=== PATIENT | male | born 1990 | race Caucasian/White ===

== ENCOUNTER → 2018-10-08 11:27 | Outpatient (CLI) | payer SELFPAY ==
--- NOTE | 2018-10-08 11:34 | HTC.HP4 ---
- Problem List (1) Hemophilia B Status: Chronic Subjective Date of Service:: 10/08/18 Chief Complaint: Hemophilia annual follow-up History of Present Illness: Hemophilia annual follow-up Used factor on 2 occasions right calf for traumatic injury and left knee without a clear injury but the knee did swell. Did not see dentist past year Health History: Past Medical History (Last Updated 10/08/17 @ 10:25 by Perla Castellano) Hemophilia (Acute) Past Surgical History (Last Updated 10/08/17 @ 10:25 by Perla Castellano) History of surgery of head (Acute) Family History (Last Updated 10/08/17 @ 10:25 by Perla Castellano) Brother Hemophilia Allergies/Adverse Reactions: Allergy/AdvReac Type Severity Reaction Status Date / Time aspirin AdvReac Severe Other Verified 10/08/18 11:44 Risk Factors Social History Smoking Status Former smoker Tobacco Risk Data: Tobacco Risk Smoking Status Former smoker Type of tobacco: Smokeless tobacco usage: Items/Day: Year started: Years used: Counseled to quit/cut down: Reason for no counseling performed: Reason for no pharmacotherapy: Tobacco use comments: Passive smoke exposure: Substance Risk Drug use: Caffeine use [drinks/day]: Alcohol use: Type of alcohol: Drinks per day: Has patient felt the need to cut down: Has the patient been annoyed by complaints: Has the patient felt guilty about drinking: Has the patient needed an eye director of psychiatry in the mornings: Comments: Review of Systems Constitutional:: Denies: Fever, Sweats, Weight loss, Appetite change, Chills Cardiovascular:: Denies: Chest pain, Palpitations, Dyspnea on exertion, Orthopnea, PND, Shortness of breath Respiratory: Denies: Cough, Hemoptysis, Shortness of Breath, Wheezing Gastrointestinal:: Denies: Abdominal pain, Nausea, Vomiting, Diarrhea, Constipation, Hematochezia Genitourinary: Denies: Dysuria, Hematuria, 15, Flank pain Musculoskeletal:: Denies: Back pain, Myalgia, Arthralgia Skin: Denies: Rash, Skin Changes, Wounds Neurological:: Denies: Headache, Dizziness, Visual changes, Tinnitus, Hearing loss Psychiatric: Denies: Anxiety, Depression, Homicidal Ideations, Suicidal Ideations - Physical Exam General: Alert, Oriented x3, No apparent distress HEENT: Atraumatic, PERRLA, EOMI, Normocephalic Oropharynx:: Dry mucosa Neck:: Supple, Trachea midline. Negative for: JVD, bilateral Cardiac:: Regular rate, Regular rhythm, Normal S1, Normal S2. Negative for: Murmur Lungs: Clear to auscultation, Excusion symmetrical. Negative for: Rhonchi, Wheezes Abdomen:: Soft, Non-tender, Non-distended. Negative for: Hepatosplenomegaly Extremities:: Negative for: Cyanosis, Edema Neurological: Neuro grossly intact Skin:: Negative for: Lesions, Rash, Petechiae, Ecchymosis Psychiatric:: Appropriate affect, Euthymic Lymphatics:: Negative for: Cervical lymphadenopathy, Supraclavicular lymphadenopathy Assessment and Plan Hemophilia annual screening visit. Reviewed: - On-demand therapy. - Appropriate oral hygiene and regular dental care is essential. - An appropriate exercise regimen encouraged for maintenance of a healthy weight, cardiovascular risk reduction, and positive effects on strength, flexibility, balance, joint stabilization, bone density, socialization, and psychological health. - Medicines that increase the risk of bleeding should be avoided namely anticoagulants, aspirin, and other nonsteroidal anti-inflammatory drugs (NSAIDs). - Herbal remedies and teum-aan-jstzibv supplements such as fish oil, may increase bleeding risk. - Pain can be treated with local measures (eg, cold packs, immobilization, splinting), and acetaminophen. - Cardiovascular disease prevention : focus on diet, exercise, smoking avoidance, and control of hypertension and hypercholesterolemia. - Planning for invasive procedures and elective surgery. Patient was also evaluated by the Hemophilia multidisciplinary team on site and Dr Yancey via video conferencing. Primary Care Provider: No Primary Care Phys Referring Provider: Boy Yancey MD
[2018-10-08 11:47] VITALS: BP 135/79; PULSE 66; RESP 17; TEMP 36.4; O2SAT 98; BMI 25.2
--- OUTSIDE RECORDS SUMMARY | 2018-11-24 04:52 | XMS RPT_ITS ---
:1990 Author Organization [facility] Care Team Providers Name Role Phone Jose Luis Lawson Attending Unavailable Boy Yancey Referring Unavailable Primay Care Physicia, No Primary Care Unavailable Jose Luis Lawson Attending Unavailable Maria Isabelut, Boy Referring Unavailable Primay Care Physicia, No Primary Care Unavailable Jose Luis Lawson Consulting Unavailable PROBLEMS PROBLEMS No Problem Records FoundPROCEDURES PROCEDURES No Procedure Records FoundRESULTS RESULTS C: OFFICE NOTE Observed: 10/08/2018 Status: F Source: [place] 12:14 PM [facility] [place], [place] REPOSITORY [facility] Medical Records Department [address] [place] [id number] C: Office Note 10/08/18 1134 MR#: [id number] Acct: [id number] Name: SRIDHAR BALDERAS Rep #: [id number] : 1990 28 From: Jose Luis Lawson MD PCP: Care Physician, No Primary Status: REG CLI Y Location: [facility] - Problem List (1) Hemophilia B Status: Chronic Subjective Date of Service:: 10/08/18 Chief Complaint: Hemophilia annual follow-up History of Present Illness: Hemophilia annual follow-up Used factor on 2 occasions right calf for traumatic injury and left knee without a clear injury but the knee did swell. Did not see dentist past year Health History: Past Medical History (Last Updated 10/08/17 @ 10:25 by Perla Castellano) Hemophilia (Acute) Past Surgical History (Last Updated 10/08/17 @ 10:25 by Perla Castellano) History of surgery of head (Acute) Family History (Last Updated 10/08/17 @ 10:25 by Perla Castellano) Brother Hemophilia Allergies/Adverse Reactions: Allergy/AdvReac Type Severity Reaction Status Date / Time aspirin AdvReac Severe Other Verified 10/08/18 11:44 Risk Factors Social History Smoking Status Former smoker Tobacco Risk Data: Tobacco Risk Smoking Status Former smoker Type of tobacco: Smokeless tobacco usage: Items/Day: Year started: Years used: Counseled to quit/cut down: Reason for no counseling performed: Reason for no pharmacotherapy: Tobacco use comments: Passive smoke exposure: Substance Risk Drug use: Caffeine use [drinks/day]: Alcohol use: Type of alcohol: Drinks per day: Has patient felt the need to cut down: Has the patient been annoyed by complaints: Has the patient felt guilty about drinking: Has the patient needed an eye supervisor order takers in the mornings: Comments: Review of Systems Constitutional:: Denies: Fever, Sweats, Weight loss, Appetite change, Chills Cardiovascular:: Denies: Chest pain, Palpitations, Dyspnea on exertion, Orthopnea, PND, Shortness of breath Respiratory: Denies: Cough, Hemoptysis, Shortness of Breath, Wheezing Gastrointestinal:: Denies: Abdominal pain, Nausea, Vomiting, Diarrhea, Constipation, Hematochezia Genitourinary: Denies: Dysuria, Hematuria, 15, Flank pain Musculoskeletal:: Denies: Back pain, Myalgia, Arthralgia Skin: Denies: Rash, Skin Changes, Wounds Neurological:: Denies: Headache, Dizziness, Visual changes, Tinnitus, Hearing loss Psychiatric: Denies: Anxiety, Depression, Homicidal Ideations, Suicidal Ideations - Physical Exam General: Alert, Oriented x3, No apparent distress HEENT: Atraumatic, PERRLA, EOMI, Normocephalic Oropharynx:: Dry mucosa Neck:: Supple, Trachea midline. Negative for: JVD, bilateral Cardiac:: Regular rate, Regular rhythm, Normal S1, Normal S2. Negative for: Murmur Lungs: Clear to auscultation, Excusion symmetrical. Negative for: Rhonchi, Wheezes Abdomen:: Soft, Non-tender, Non-distended. Negative for: Hepatosplenomegaly Extremities:: Negative for: Cyanosis, Edema Neurological: Neuro grossly intact Skin:: Negative for: Lesions, Rash, Petechiae, Ecchymosis Psychiatric:: Appropriate affect, Euthymic Lymphatics:: Negative for: Cervical lymphadenopathy, Supraclavicular lymphadenopathy Assessment and Plan Hemophilia annual screening visit. Reviewed: - On-demand therapy. - Appropriate oral hygiene and regular dental care is essential. - An appropriate exercise regimen encouraged for maintenance of a healthy weight, cardiovascular risk reduction, and positive effects on strength, flexibility, balance, joint stabilization, bone density, socialization, and psychological health. - Medicines that increase the risk of bleeding should be avoided namely anticoagulants, aspirin, and other nonsteroidal anti-inflammatory drugs (NSAIDs). - Herbal remedies and mrne-ibs-hempdol supplements such as fish oil, may increase bleeding risk. - Pain can be treated with local measures (eg, cold packs, immobilization, splinting), and acetaminophen. - Cardiovascular disease prevention : focus on diet, exercise, smoking avoidance, and control of hypertension and hypercholesterolemia. - Planning for invasive procedures and elective surgery. Patient was also evaluated by the Hemophilia multidisciplinary team on site and Dr Yancey via video conferencing. Primary Care Provider: No Primary Care Phys Referring Provider: Boy Yancey MD 10/08/18 1214 <Electronically signed by Jose Luis Lawson MD> Date Jose Luis Lawson MD Cosigner Signature (if applicable): Date CC: Signed ALLERGIES ALLERGIES DATE TYPE / CODE NAME / CODE REACTION SEVERITY SOURCE 10/08/2018 Drug aspirin/F006 Other [facility] Allergy/4160 [id number]([facility] 91004(SNOMED M) Repository CT) ENCOUNTERS ENCOUNTERS ADMIT/DISCHARGE ACCOUNT ADMITTING ENCOUNTER LOCATION SOURCE NUMBER CLASS 10/08/2018 [id number] Ambulatory B[facility]:[address] [place] [address] [place] Repository 10/08/2018 [id number] Ambulatory [place] [address] [facility] ing:[facility] Repository PAYERS PAYERS ENCOUNTER GUARANTOR PAYER SUBSCRIBER SOURCE 10/08/2018 FIRMAN A Primary NOT GIVENUNK [place] [id number] TR Insurance:SELF PAY [address] [id number]: [phone]) Number: Effective Repository [phone] () Date:2018-10-08 10/08/2018 FIRMAN A Primary [facility] GIVENUNK [id number] TR Insurance:SELF PAY [address] [address]Wlc: [phone]) Number: Effective Repository [phone] () Date:2018-07-02
== END ==
PROVIDERS: Referring Provider Internal Medicine Hematology & Oncology; Visit Provider Internal Medicine Hematology & Oncology
DX: D67 Hereditary factor IX deficiency (principal)

== ENCOUNTER → 2019-10-07 09:57 | Outpatient (CLI) | payer SELFPAY ==
[2018-10-08 11:47] VITALS: BMI 25.2
[2019-10-07 10:05] VITALS: BP 123/75; PULSE 64; RESP 14; TEMP 36.4; O2SAT 97; BMI 26.9
--- NOTE | 2019-10-07 10:24 | WMO.HTC_ITS ---
Problem List (1) Hemophilia B Status: Chronic Subjective Date of Service:: 10/07/19 Chief Complaint: F/u for hemophilia B. History of Present Illness: 29y.o.man with Hemophilia B, comes for follow up. Has not use any factor replacement this year. Did not need dental work. Feels well. Health History: Past Medical History (Last Reviewed 10/07/19 @ 10:04 by Perla Castellano) Hemophilia (Acute) Past Surgical History (Last Reviewed 10/07/19 @ 10:04 by Perla Castellano) History of surgery of head (Acute) Family History (Last Reviewed 10/07/19 @ 10:04 by Perla Castellano) Brother Hemophilia Social History Social History: No changes Smoking Status Former smoker Allergies/Adverse Reactions: Allergy/AdvReac Type Severity Reaction Status Date / Time aspirin AdvReac Severe Other Verified 10/07/19 10:04 Risk Factors Social History Social History: No changes Smoking Status Former smoker Tobacco Risk Data: Tobacco Risk Smoking Status Former smoker Type of tobacco: Smokeless tobacco usage: Never Items/Day: Year started: Years used: 7 Counseled to quit/cut down: Reason for no counseling performed: Reason for no pharmacotherapy: Tobacco use comments: Passive smoke exposure: No Substance Risk Drug use: No Caffeine use [drinks/day]: 2 Alcohol use: No Type of alcohol: Drinks per day: Has patient felt the need to cut down: Has the patient been annoyed by complaints: Has the patient felt guilty about drinking: Has the patient needed an eye compensation specialist in the mornings: Comments: Review of Systems Constitutional:: Denies: Fever, Sweats, Weight loss, Appetite change, Chills Cardiovascular:: Denies: Chest pain, Palpitations, Dyspnea on exertion, Orthopnea, PND, Shortness of breath Respiratory: Denies: Cough, Hemoptysis, Shortness of Breath, Wheezing Gastrointestinal:: Denies: Abdominal pain, Nausea, Vomiting, Diarrhea, Constipation, Hematochezia Genitourinary: Denies: Dysuria, Hematuria, 15, Flank pain Musculoskeletal:: Denies: Back pain, Myalgia, Arthralgia Skin: Denies: Rash, Skin Changes, Wounds Neurological:: Denies: Headache, Dizziness, Visual changes, Tinnitus, Hearing loss Psychiatric: Denies: Anxiety, Depression, Homicidal Ideations, Suicidal Ideations Vital Signs Height 6 ft 1 in Weight: 92.351 kg Weight in Pounds 203.6 lbs Pulse Ox 97 Temperature 97.6 F Pulse Rate 64 Respiratory Rate 14 Blood Pressure 123/75 Blood Pressure Position Sitting - Physical Exam General: Alert, Oriented x3, No apparent distress HEENT: Atraumatic, PERRLA, EOMI, Normocephalic Oropharynx:: Dry mucosa Neck:: Supple, Trachea midline. Negative for: JVD, bilateral Cardiac:: Regular rate, Regular rhythm, Normal S1, Normal S2. Negative for: Murmur Lungs: Clear to auscultation, Excusion symmetrical. Negative for: Rhonchi, Wheezes Abdomen:: Bowel sounds x 4, Soft, Non-tender, Non-distended. Negative for: Hepatosplenomegaly Extremities:: Negative for: Cyanosis, Edema Neurological: Neuro grossly intact Skin:: Negative for: Lesions, Rash, Petechiae, Ecchymosis Psychiatric:: Appropriate affect, Euthymic Lymphatics:: Negative for: Cervical lymphadenopathy, Supraclavicular lymphadenopathy, Axillary lymphadenopathy Therapy ROM Screening - Subjective Subjective:: pt states he is feeling well- has a cold but doing ok- - Objective Right shoulder flex:: 165 Left shoulder flex:: 165 Right shoulder extension:: 55 Left shoulder extension:: 50 Right elbox flex/ext:: 0/140 Left elbox flex/ext:: 0/140 Right elbow circumference:: sweater on nt Left elbow circumference:: sweater on NT Right forearm sup/pron:: WNL Left forearm sup/pron:: WNL Right knee flexion:: 120 Left knee flexion:: 120 Right knee circumference:: 40cm Left knee circumference:: 40cm Right ankle dorsiflexion:: 25 Left ankle dorsiflexion:: 25 Right ankle Plan-flex:: 45 Left ankle Plan-flex:: 45 Right ankle circumference:: NT boot on Left ankle circumference:: Nt boots on Right hip flexion:: 90 Left hip flexion:: 90 Right hip extension:: 20 Left hip extension:: 20 - Assessment Assessment:: Pt demo all ROM WNL no conerns at this time Assessment and Plan Hemophilia B, clinically stable. Plan is to continue expectant management with Factor replacement as needed. RTC 1 yr. Medications: Prescriptions This Visit Medication Instructions Recorded NK 10/07/19 Primary Care Provider: No Primary Care Phys Referring Provider:
== END ==
PROVIDERS: Visit Provider Internal Medicine Medical Oncology
DX: D67 Hereditary factor IX deficiency (principal)